=== PATIENT | female | born 1995 | race Caucasian/White ===

== ENCOUNTER 2018-11-14 14:30 | Emergency (ER) | payer OTHER ==
[~2018-11-14] VITALS: Ht 157.5 cm; Wt 55.0 kg
[~2018-11-14 14:30] MED LIST: FAMO40TA5 PO; ONDA4TAB14 PO; UDMYL PO
[2018-11-14 14:46] VITALS: BP 132/79; PULSE 72; RESP 18; Ht 157.5 cm; Wt 55.0 kg
[2018-11-14] MEDS ORDERED: BELLADONNA/PHENOBARBITAL TAB PO STA (15:00)
[2018-11-14] MEDS ORDERED: LIDOCAINE/MYLANTA 40 ML BTL PO STA (15:00)
--- NOTE | 2018-11-14 15:05 | ERD ---
ER Documentation Chief Complaint Chief Complaint epigastric pain x 2 weeks; nausea HPI Otherwise healthy 23-year-old female is here with 2 weeks of intermittent epigastric pain. No fever. She has had nausea but no vomiting. No diarrhea. No dysuria hematuria or frequency. Denies possibility of . ROS All systems reviewed and are negative except as per history of present illness. FmHx Family History: No diabetes Physical Exam Vitals Vital Signs Date Temp Pulse Resp B/P (MAP) Pulse Ox O2 O2 Flow FiO2 Time Delivery Rate 11/14/18 98.2 72 18 132/79 99 14:46 (96) Physical Exam INITIAL VITAL SIGNS: Reviewed by me GENERAL: Awake, alert and oriented x 4, well appearing, nontoxic, speaking in full sentences. No acute distress RESPIRATORY: Clear to auscultation bilaterally. Symmetric chest wall rise. No wheezing or rales. No accessory muscle use. CV: Regular rate and rhythm. No murmurs, rubs, or gallops. ABDOMEN: Soft, non-distended. Nontender. Negative [place]. Negative McBurneys point tenderness. No CVA tenderness bilaterally. No guarding. No rebound. Results 24 hrs Current Medications Medications Dose Sig/Taj Start Time Status Last (Trade) Ordered Route PRN Stop Time Admin Dose Reason Admin 40 ml ONCE STAT 11/14/18 DC Miscellaneous PO 15:00 11/14/18 Medication 15:01 (Gi Cocktail (2)) Belladonna/ 2 tab ONCE STAT 11/14/18 DC Phenobarbital PO 15:00 11/14/18 () 15:01 Procedures/MDM The differential diagnosis includes but is not limited to appendicitis, shar lithiasis, cholecystitis, pancreatitis, hepatitis, gastritis, peptic ulcer disease, bowel obstruction, diverticulitis, renal disease including stones, torsion, AAA, pyelonephritis, and others. GI examination is benign as she has no tenderness throughout. No fever. No vomiting. This is likely gastritis. She has no Kim sign or McBurney's point tenderness. She was given GI co cktail here and discharged with Mylanta and Pepcid. She was counseled on dietary changes to help as well. Patient counseled regarding my diagnostic impression and care plan. Prior to discharge all questions answered. Pt agrees with treatment plan and understands strict return precautions. Pt is instructed to follow up with primary care provider within 24-48 hours. Precautionary i nstructions provided including instructions to return to the ER if not improving or for any worsening or changing symptoms or concerns. Departure Diagnosis: Primary Impression: Epigastric pain Condition: BENY Herr PA-C Nov 14, 2018 15:05
== END 2018-11-14 15:48 | disposition home or self-care (01) ==
LOC: FTE 14:30
DX: R10.13 Epigastric pain (principal)
CPT/HCPCS: 81025; Z7502; Z7610; 99283